=== PATIENT | male | born 1990 | race Caucasian/White ===

== ENCOUNTER → 2020-09-04 | Outpatient (CLI) | payer OTHER ==
[2020-09-05 10:21] LABS: HBSAG SCREEN Negative (Negative); HEP A AB, IGM Negative (Negative); HEP B CORE AB, IGM Negative (Negative); HEP C VIRUS AB <0.1 (0.0-0.9)
== END ==
LOC: US 10:00
PROVIDERS: Internal Medicine Gastroenterology
DX: R74.01 Elevation of levels of liver transaminase levels (principal); R10.11 Right upper quadrant pain
CPT/HCPCS: 36415; 76705; 80074; 80076; 82728; 83540; 83550

== ENCOUNTER → 2021-03-24 | Outpatient (CLI) | payer OTHER | LOC: RAD 16:34 | DX: U07.1 COVID-19 (principal); R06.02 Shortness of breath | CPT/HCPCS: 71046 ==